=== PATIENT | female | born 1975 | race Caucasian/White ===

== ENCOUNTER 2018-12-18 19:40 | Emergency (ER) | payer MEDICAID ==
[~2018-12-18] VITALS: Ht 162.6 cm; Wt 84.4 kg
[2018-12-18 19:45] VITALS: BP 142/81
--- NOTE | 2018-12-18 19:45 | NUR ---
MELECIO VELASCO SPEAKING WITH FAMILY IN [facility]
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
--- NOTE | 2018-12-18 19:47 | NUR ---
PT TAKEN TO BED 3
[2018-12-18] MEDS ORDERED: KETOROLAC 60 MG/2 ML VIAL IM ONE (21:20)
[2018-12-18 21:44] VITALS: BP 132/79
== END 2018-12-18 21:45 | disposition home or self-care (01) ==
LOC: MED 19:40
DX: S16.1XXA Strain of muscle, fascia and tendon at neck level, initial encounter (principal); R51 Headache; I10 Essential (primary) hypertension; Z88.5 Allergy status to narcotic agent; Z98.890 Other specified postprocedural states; V43.52XA Car driver injured in collision with other type car in traffic accident, initial encounter; Y93.89 Activity, other specified; Y92.89 Other specified places as the place of occurrence of the external cause; Y99.8 Other external cause status
CPT/HCPCS: 72040; 96372; 99283; J1885